=== PATIENT | male | born 1970 | race Caucasian/White ===

== ENCOUNTER → 2017-03-03 | Outpatient (REF) | payer BC ==
[~2017-03-03] MED LIST: /AMLO25TA PO; BP MED; CIPR500T3 PO; FLAG500T PO; MULTCHW13 PO; SIME40TA PO; TYLE325T5 PO; VITAD1000T PO
[2017-03-03 16:41] LABS: BASO % 0.3 % (0.0-1.0); EOS # 0.1 K/mm3 (0.0-0.50); EOS % 2.2 % (0.0-3.0); LARGE UNSTAINED CELL # 0.2 K/mm3 (0.0-0.4); LARGE UNSTAINED CELL % 2.4 % (0.0-4.0); LYMPH # 1.9 K/mm3 (1.5-4.5); LYMPH % 28.5 % (24.0-44.0); MEAN CORPUSCULAR HEMOGLOBIN 29.7 pg (27.0-33.0); MEAN CORPUSCULAR HGB CONC 32.9 g/dl (32.0-36.5); MEAN CORPUSCULAR VOLUME 90.5 fl (80.0-96.0); MONO # 0.4 K/mm3 (0.0-0.8); MONO % 6.5 % (0.0-5.0); NEUTROPHILS # 3.9 K/mm3 (1.8-7.7); PLATELET COUNT, AUTOMATED 209 k/mm3 (150-450); RED CELL DISTRIBUTION WIDTH 13.5 % (11.5-14.5); WHITE BLOOD COUNT 6.5 K/mm3 (4.0-10.0)
[2017-03-03 17:38] LABS: VITAMIN B12 LEVEL 307 PG/ML (247-911)
[2017-03-03 17:46] LABS: ANION GAP 6 MEQ/L (8-16); BLOOD UREA NITROGEN 11 MG/DL (7-18); CALCIUM LEVEL 8.8 MG/DL (8.5-10.1); CARBON DIOXIDE LEVEL 30 MEQ/L (21-32); CHLORIDE LEVEL 111 MEQ/L (98-107); CREATININE FOR GFR 1.08 MG/DL (0.70-1.30); FERRITIN 28 NG/ML (26-388); FREE T4 0.84 NG/DL (0.76-1.46); GLOMERULAR FILTRATION RATE > 60.0 (>60); GLUCOSE, FASTING 96 MG/DL (70-105); SODIUM LEVEL 147 MEQ/L (136-145)
== END ==
LOC: M SFHCLERA 09:59
PROVIDERS: ATTEND Family Medicine
DX: Z98.890 Other specified postprocedural states (principal); F34.1 Dysthymic disorder; I10 Essential (primary) hypertension

== ENCOUNTER → 2017-03-03 | Outpatient (REF) | payer BC ==
[2017-03-03 16:37] LABS: BASO % 0.3 % (0.0-1.0); EOS # 0.2 K/mm3 (0.0-0.50); EOS % 2.3 % (0.0-3.0); LARGE UNSTAINED CELL # 0.2 K/mm3 (0.0-0.4); LARGE UNSTAINED CELL % 2.8 % (0.0-4.0); LYMPH # 1.9 K/mm3 (1.5-4.5); LYMPH % 29.1 % (24.0-44.0); MEAN CORPUSCULAR HEMOGLOBIN 29.6 pg (27.0-33.0); MEAN CORPUSCULAR HGB CONC 32.7 g/dl (32.0-36.5); MEAN CORPUSCULAR VOLUME 90.6 fl (80.0-96.0); MONO # 0.5 K/mm3 (0.0-0.8); MONO % 7.3 % (0.0-5.0); NEUTROPHILS # 3.8 K/mm3 (1.8-7.7); NEUTROPHILS % 58.1 % (36.0-66.0); PLATELET COUNT, AUTOMATED 210 k/mm3 (150-450); RED CELL DISTRIBUTION WIDTH 13.5 % (11.5-14.5); WHITE BLOOD COUNT 6.4 K/mm3 (4.0-10.0)
[2017-03-03 17:11] LABS: ALBUMIN 3.5 GM/DL (3.2-5.2); ALBUMIN/GLOBULIN RATIO 1.25 (1.00-1.93); ALKALINE PHOSPHATASE 36 U/L (45-117); ALT/SGPT 21 U/L (12-78); ANION GAP 5 MEQ/L (8-16); AST/SGOT 13 U/L (15-37); BILIRUBIN,DIRECT 0.1 MG/DL (0.0-0.2); BILIRUBIN,TOTAL 0.5 MG/DL (0.2-1.0); BLOOD UREA NITROGEN 12 MG/DL (7-18); CALCIUM LEVEL 8.7 MG/DL (8.5-10.1); CARBON DIOXIDE LEVEL 30 MEQ/L (21-32); CHLORIDE LEVEL 111 MEQ/L (98-107); CREATININE FOR GFR 1.08 MG/DL (0.70-1.30); GLOMERULAR FILTRATION RATE > 60.0 (>60); GLUCOSE, FASTING 94 MG/DL (70-105); POTASSIUM SERUM 4.1 MEQ/L (3.5-5.1); SODIUM LEVEL 146 MEQ/L (136-145); TOTAL PROTEIN 6.3 GM/DL (6.4-8.2)
== END ==
LOC: M LAB REF 16:28
PROVIDERS: ATTEND Physician Assistant
DX: Z51.81 Encounter for therapeutic drug level monitoring (principal); Z79.899 Other long term (current) drug therapy

== ENCOUNTER → 2017-03-15 | Outpatient (REF) | payer BC | LOC: M SFHCLERA 11:33 | PROVIDERS: ATTEND Family Medicine | DX: Z11.4 Encounter for screening for human immunodeficiency virus [HIV] (principal) ==

== ENCOUNTER → 2017-05-11 | Outpatient (CLI) | payer BC ==
[2017-05-11 12:58] LABS: BASO % 0.6 % (0.0-1.0); EOS # 0.2 K/mm3 (0.0-0.50); EOS % 2.3 % (0.0-3.0); LYMPH % 28.2 % (24.0-44.0); MEAN CORPUSCULAR HEMOGLOBIN 31.2 pg (27.0-33.0); MEAN CORPUSCULAR HGB CONC 34.7 g/dl (32.0-36.5); MONO # 0.4 K/mm3 (0.0-0.8); MONO % 6.3 % (0.0-5.0); NEUTROPHILS % 60.3 % (36.0-66.0); RED CELL DISTRIBUTION WIDTH 13.2 % (11.5-14.5); WHITE BLOOD COUNT 6.6 K/mm3 (4.0-10.0)
[2017-05-11 13:06] LABS: ALBUMIN 3.5 GM/DL (3.2-5.2); ALBUMIN/GLOBULIN RATIO 1.09 (1.00-1.93); ALKALINE PHOSPHATASE 33 U/L (45-117); ALT/SGPT 22 U/L (12-78); ANION GAP 5 MEQ/L (8-16); AST/SGOT 11 U/L (15-37); BILIRUBIN,DIRECT < 0.1 MG/DL (0.0-0.2); BILIRUBIN,TOTAL 0.5 MG/DL (0.2-1.0); BLOOD UREA NITROGEN 11 MG/DL (7-18); CALCIUM LEVEL 8.6 MG/DL (8.5-10.1); CARBON DIOXIDE LEVEL 30 MEQ/L (21-32); CHLORIDE LEVEL 108 MEQ/L (98-107); CREATININE FOR GFR 1.09 MG/DL (0.70-1.30); GLOMERULAR FILTRATION RATE > 60.0 (>60); GLUCOSE, FASTING 88 MG/DL (70-105); POTASSIUM SERUM 4.3 MEQ/L (3.5-5.1); SODIUM LEVEL 143 MEQ/L (136-145); TOTAL PROTEIN 6.7 GM/DL (6.4-8.2)
== END ==
LOC: M WUC 09:44
PROVIDERS: ATTEND Physician Assistant
DX: Z79.899 Other long term (current) drug therapy (principal)

== ENCOUNTER → 2017-06-27 | Outpatient (REF) | payer BC ==
[2017-06-27 19:17] LABS: ALBUMIN 3.5 GM/DL (3.2-5.2); ALBUMIN/GLOBULIN RATIO 1.03 (1.00-1.93); ALKALINE PHOSPHATASE 43 U/L (45-117); ALT/SGPT 25 U/L (12-78); ANION GAP 5 MEQ/L (8-16); AST/SGOT 16 U/L (15-37); BILIRUBIN,TOTAL 0.4 MG/DL (0.2-1.0); BLOOD UREA NITROGEN 12 MG/DL (7-18); CALCIUM LEVEL 8.9 MG/DL (8.5-10.1); CARBON DIOXIDE LEVEL 31 MEQ/L (21-32); CHLORIDE LEVEL 106 MEQ/L (98-107); CREATININE FOR GFR 1.14 MG/DL (0.70-1.30); FREE T4 0.85 NG/DL (0.76-1.46); GLOMERULAR FILTRATION RATE > 60.0 (>60); GLUCOSE, FASTING 67 MG/DL (70-105); PERCENT SATURATION 28.3 % (19.7-50.0); POTASSIUM SERUM 4.1 MEQ/L (3.5-5.1); SODIUM LEVEL 142 MEQ/L (136-145); TOTAL IRON BINDING CAPACITY 332 UG/DL (250-450); TOTAL PROTEIN 6.9 GM/DL (6.4-8.2)
== END ==
LOC: M SFHCLERA 11:45
PROVIDERS: ATTEND Family Medicine
DX: R25.2 Cramp and spasm (principal)

== ENCOUNTER → 2018-01-25 | Outpatient (CLI) | payer BC ==
[2018-01-25 11:23] LABS: BASO # 0.1 10^3/uL (0.0-0.2); BASO % 0.7 % (0.0-1.0); EOS # 0.2 10^3/uL (0.0-0.50); EOS % 2.9 % (0.0-3.0); HEMATOCRIT 45.5 % (42.0-52.0); HEMOGLOBIN 15.4 g/dl (14.0-18.0); IMMATURE GRANULOCYTE % 0.3 % (0-3.0); LYMPH # 2.1 10^3/uL (1.5-4.5); LYMPH % 30.3 % (24.0-44.0); MEAN CORPUSCULAR HGB CONC 33.8 g/dl (32.0-36.5); MEAN CORPUSCULAR VOLUME 85.7 fl (80.0-96.0); MONO # 0.6 10^3/uL (0.0-0.8); MONO % 9.3 % (0.0-5.0); NEUTROPHILS # 3.9 10^3/uL (1.8-7.7); NEUTROPHILS % 56.5 % (36.0-66.0); PLATELET COUNT, AUTOMATED 232 10^3/uL (150-450); RED BLOOD COUNT 5.31 10^6/uL (4.30-6.10); RED CELL DISTRIBUTION WIDTH 13.3 % (11.5-14.5); WHITE BLOOD COUNT 6.9 10^3/uL (4.0-10.0)
[2018-01-25 11:56] LABS: ALBUMIN 3.4 GM/DL (3.2-5.2); ALBUMIN/GLOBULIN RATIO 1.13 (1.00-1.93); ALKALINE PHOSPHATASE 45 U/L (45-117); ALT/SGPT 21 U/L (12-78); ANION GAP 7 MEQ/L (8-16); AST/SGOT 15 U/L (7-37); BILIRUBIN,DIRECT 0.1 MG/DL (0.0-0.2); BILIRUBIN,TOTAL 0.5 MG/DL (0.2-1.0); BLOOD UREA NITROGEN 9 MG/DL (7-18); CALCIUM LEVEL 8.5 MG/DL (8.5-10.1); CARBON DIOXIDE LEVEL 29 MEQ/L (21-32); CHLORIDE LEVEL 109 MEQ/L (98-107); GLOMERULAR FILTRATION RATE > 60.0 (>60); GLUCOSE, FASTING 86 MG/DL (70-100); POTASSIUM SERUM 4.2 MEQ/L (3.5-5.1); SODIUM LEVEL 145 MEQ/L (136-145); TOTAL PROTEIN 6.4 GM/DL (6.4-8.2)
== END ==
LOC: M WUC 10:05
DX: Z79.899 Other long term (current) drug therapy (principal)
CPT/HCPCS: 80076

== ENCOUNTER → 2018-04-19 | Outpatient (REF) | payer BC ==
[2018-04-20 11:01] LABS: ALBUMIN 3.7 GM/DL (3.2-5.2); ALBUMIN/GLOBULIN RATIO 1.23 (1.00-1.93); ALKALINE PHOSPHATASE 49 U/L (45-117); ALT/SGPT 21 U/L (12-78); ANION GAP 4 MEQ/L (8-16); AST/SGOT 14 U/L (7-37); BILIRUBIN,DIRECT 0.1 MG/DL (0.0-0.2); BILIRUBIN,TOTAL 0.4 MG/DL (0.2-1.0); BLOOD UREA NITROGEN 10 MG/DL (7-18); CALCIUM LEVEL 8.7 MG/DL (8.5-10.1); CARBON DIOXIDE LEVEL 29 MEQ/L (21-32); CHLORIDE LEVEL 109 MEQ/L (98-107); CREATININE FOR GFR 0.98 MG/DL (0.70-1.30); GLOMERULAR FILTRATION RATE > 60.0 (>60); GLUCOSE, FASTING 81 MG/DL (70-100); POTASSIUM SERUM 4.8 MEQ/L (3.5-5.1); SODIUM LEVEL 142 MEQ/L (136-145); TOTAL PROTEIN 6.7 GM/DL (6.4-8.2)
[2018-04-20 13:04] LABS: HEMATOCRIT 46.3 % (42.0-52.0); HEMOGLOBIN 15.3 g/dl (13.5-17.5); MEAN CORPUSCULAR HEMOGLOBIN 29.8 pg (27.0-33.0); MEAN CORPUSCULAR VOLUME 90.3 fl (80.0-96.0); PLATELET COUNT, AUTOMATED 224 10^3/uL (150-450); RED BLOOD COUNT 5.13 10^6/uL (4.30-6.10); RED CELL DISTRIBUTION WIDTH 13.6 % (11.5-14.5)
== END ==
LOC: M LABSMT 10:04
DX: Z79.899 Other long term (current) drug therapy (principal)
CPT/HCPCS: 80076

== ENCOUNTER → 2018-04-20 | Outpatient (CLI) | payer BC | LOC: M WUC 11:22 | DX: M17.11 Unilateral primary osteoarthritis, right knee (principal) | CPT/HCPCS: 73564 ==

== ENCOUNTER → 2018-12-01 | Outpatient (REF) | payer OTHER ==
[2018-12-01 16:34] LABS: ALBUMIN 3.6 GM/DL (3.2-5.2); BILIRUBIN,DIRECT 0.1 MG/DL (0.0-0.2); BILIRUBIN,TOTAL 0.5 MG/DL (0.2-1.0); TOTAL PROTEIN 6.6 GM/DL (6.4-8.2)
== END ==
LOC: M SFHCLERA 11:18
PROVIDERS: ATTEND Family Medicine
DX: R76.11 Nonspecific reaction to tuberculin skin test without active tuberculosis (principal)

== ENCOUNTER → 2018-12-01 | Outpatient (CLI) | payer OTHER ==
--- NOTE | 2018-12-01 13:58 | REP ---
Chest x-ray: Two views. History: Latent tuberculosis. . Comparison study: September 22, 2017 . Findings: The lungs are well inflated and free of infiltrate. The pleural angles are sharp. The heart size is normal. Pulmonary vasculature is not increased. No significant bony abnormality is seen. Impression: Negative chest x-ray. Electronically Signed by Kelechi Livingston MD 12/01/2018 01:49 P
== END ==
LOC: M LRY 11:37
PROVIDERS: ATTEND Family Medicine
DX: R76.11 Nonspecific reaction to tuberculin skin test without active tuberculosis (principal)

== ENCOUNTER → 2019-01-09 | Outpatient (REF) | payer OTHER ==
[2019-01-09 11:35] LABS: BASO % 0.4 % (0.0-1.0); EOS # 0.1 10^3/uL (0.0-0.50); EOS % 1.1 % (0.0-3.0); HEMATOCRIT 46.1 % (42.0-52.0); HEMOGLOBIN 15.2 g/dl (13.5-17.5); LYMPH % 18.2 % (24.0-44.0); MEAN CORPUSCULAR VOLUME 90.9 fl (80.0-96.0); NEUTROPHILS # 7.7 10^3/uL (1.8-7.7); NEUTROPHILS % 70.9 % (36.0-66.0); PLATELET COUNT, AUTOMATED 268 10^3/uL (150-450); RED BLOOD COUNT 5.07 10^6/uL (4.30-6.10); WHITE BLOOD COUNT 10.9 10^3/uL (4.0-10.0)
[2019-01-09 11:41] LABS: ALBUMIN 3.7 GM/DL (3.2-5.2); BILIRUBIN,DIRECT 0.2 MG/DL (0.0-0.2); BILIRUBIN,TOTAL 0.7 MG/DL (0.2-1.0); TOTAL PROTEIN 6.8 GM/DL (6.4-8.2)
== END ==
LOC: M SFHCLERA 08:22
PROVIDERS: ATTEND Family Medicine
DX: R76.11 Nonspecific reaction to tuberculin skin test without active tuberculosis (principal)

== ENCOUNTER → 2019-02-06 | Outpatient (CLI) | payer OTHER ==
[2019-02-06 20:10] LABS: BASO % 0.4 % (0.0-1.0); EOS # 0.2 10^3/uL (0.0-0.50); HEMATOCRIT 45.2 % (42.0-52.0); HEMOGLOBIN 14.8 g/dl (13.5-17.5); LYMPH # 2.4 10^3/uL (1.5-4.5); LYMPH % 26.1 % (24.0-44.0); MEAN CORPUSCULAR HGB CONC 32.7 g/dl (32.0-36.5); MEAN CORPUSCULAR VOLUME 91.5 fl (80.0-96.0); MONO # 0.8 10^3/uL (0.0-0.8); MONO % 8.7 % (0.0-5.0); NEUTROPHILS # 5.7 10^3/uL (1.8-7.7); NEUTROPHILS % 62.5 % (36.0-66.0); PLATELET COUNT, AUTOMATED 222 10^3/uL (150-450); RED BLOOD COUNT 4.94 10^6/uL (4.30-6.10); WHITE BLOOD COUNT 9.1 10^3/uL (4.0-10.0)
[2019-02-06 20:12] LABS: ALBUMIN 3.5 GM/DL (3.2-5.2); ALT/SGPT 25 U/L (12-78); BILIRUBIN,DIRECT < 0.1 MG/DL (0.0-0.2); BILIRUBIN,TOTAL 0.3 MG/DL (0.2-1.0); TOTAL PROTEIN 6.5 GM/DL (6.4-8.2)
== END ==
LOC: M WUC 16:17
PROVIDERS: ATTEND Family Medicine
DX: R76.11 Nonspecific reaction to tuberculin skin test without active tuberculosis (principal)

== ENCOUNTER → 2019-03-10 | Outpatient (CLI) | payer OTHER ==
[~2019-03-10] MED LIST changes: -/AMLO25TA PO; +NORV2TAB PO
[2019-03-10 19:07] LABS: BASO % 0.5 % (0.0-1.0); EOS # 0.2 10^3/uL (0.0-0.50); HEMATOCRIT 47.9 % (42.0-52.0); LYMPH # 2.1 10^3/uL (1.5-4.5); LYMPH % 27.9 % (24.0-44.0); MEAN CORPUSCULAR HEMOGLOBIN 30.8 pg (27.0-33.0); MEAN CORPUSCULAR HGB CONC 33.4 g/dl (32.0-36.5); MEAN CORPUSCULAR VOLUME 92.1 fl (80.0-96.0); MONO # 0.5 10^3/uL (0.0-0.8); MONO % 7.2 % (0.0-5.0); NEUTROPHILS # 4.7 10^3/uL (1.8-7.7); PLATELET COUNT, AUTOMATED 263 10^3/uL (150-450); WHITE BLOOD COUNT 7.5 10^3/uL (4.0-10.0)
[2019-03-10 19:16] LABS: BILIRUBIN,DIRECT 0.1 MG/DL (0.0-0.2); BILIRUBIN,TOTAL 0.4 MG/DL (0.2-1.0); TOTAL PROTEIN 6.9 GM/DL (6.4-8.2)
== END ==
LOC: M WUC 10:35
PROVIDERS: ATTEND Family Medicine
DX: R76.11 Nonspecific reaction to tuberculin skin test without active tuberculosis (principal)

== ENCOUNTER → 2019-06-25 | Outpatient (CLI) | payer OTHER ==
[2019-06-25 20:19] LABS: BASO % 0.5 % (0.0-1.0); EOS # 0.2 10^3/uL (0.0-0.50); EOS % 2.5 % (0.0-3.0); HEMATOCRIT 42.1 % (42.0-52.0); HEMOGLOBIN 14.2 g/dl (13.5-17.5); LYMPH # 2.4 10^3/uL (1.5-4.5); LYMPH % 28.6 % (24.0-44.0); MEAN CORPUSCULAR HGB CONC 33.7 g/dl (32.0-36.5); MEAN CORPUSCULAR VOLUME 88.8 fl (80.0-96.0); MONO # 0.9 10^3/uL (0.0-0.8); MONO % 10.6 % (0.0-5.0); NEUTROPHILS # 4.9 10^3/uL (1.8-7.7); NEUTROPHILS % 57.4 % (36.0-66.0); PLATELET COUNT, AUTOMATED 266 10^3/uL (150-450); RED BLOOD COUNT 4.74 10^6/uL (4.30-6.10); WHITE BLOOD COUNT 8.5 10^3/uL (4.0-10.0)
[2019-06-25 20:45] LABS: ALBUMIN 3.5 GM/DL (3.2-5.2); ALT/SGPT 35 U/L (12-78); BILIRUBIN,DIRECT < 0.1 MG/DL (0.0-0.2); BILIRUBIN,TOTAL 0.2 MG/DL (0.2-1.0); TOTAL PROTEIN 6.5 GM/DL (6.4-8.2)
== END ==
LOC: M WUC 17:06
PROVIDERS: ATTEND Family Medicine
DX: R76.11 Nonspecific reaction to tuberculin skin test without active tuberculosis (principal)

== ENCOUNTER → 2019-10-23 | Outpatient (REF) | payer OTHER ==
[2019-10-23 11:42] LABS: BASO % 0.6 % (0.0-1.0); EOS # 0.1 10^3/uL (0.0-0.5); EOS % 2.2 % (0.0-3.0); HEMATOCRIT 46.8 % (42.0-52.0); HEMOGLOBIN 15.3 g/dl (13.5-17.5); LYMPH # 1.8 10^3/uL (1.5-5.0); LYMPH % 28.8 % (24.0-44.0); MEAN CORPUSCULAR HEMOGLOBIN 29.2 pg (27.0-33.0); MEAN CORPUSCULAR HGB CONC 32.7 g/dl (32.0-36.5); MEAN CORPUSCULAR VOLUME 89.3 fl (80.0-96.0); MONO # 0.7 10^3/uL (0.0-0.8); MONO % 10.2 % (0.0-5.0); NEUTROPHILS # 3.7 10^3/uL (1.5-8.5); NEUTROPHILS % 57.3 % (36.0-66.0); PLATELET COUNT, AUTOMATED 246 10^3/uL (150-450); RED BLOOD COUNT 5.24 10^6/uL (4.30-6.10); WHITE BLOOD COUNT 6.4 10^3/uL (4.0-10.0)
[2019-10-23 11:56] LABS: ALBUMIN 3.4 GM/DL (3.2-5.2); ALT/SGPT 24 U/L (12-78); BILIRUBIN,TOTAL 0.5 MG/DL (0.2-1.0); BLOOD UREA NITROGEN 9 MG/DL (7-18); CALCIUM LEVEL 8.5 MG/DL (8.5-10.1); CARBON DIOXIDE LEVEL 27 MEQ/L (21-32); CHLORIDE LEVEL 109 MEQ/L (98-107); CREATININE FOR GFR 1.12 MG/DL (0.70-1.30); GLOMERULAR FILTRATION RATE > 60.0 (>60); GLUCOSE, FASTING 97 MG/DL (70-100); POTASSIUM SERUM 3.7 MEQ/L (3.5-5.1); SODIUM LEVEL 143 MEQ/L (136-145); TOTAL PROTEIN 6.5 GM/DL (6.4-8.2)
== END ==
LOC: M SFHCLERA 08:21
PROVIDERS: ATTEND Family Medicine
DX: I10 Essential (primary) hypertension (principal); Z22.7 Latent tuberculosis

== ENCOUNTER → 2020-08-20 | Outpatient (CLI) | payer OTHER ==
[2020-08-20 11:06] LABS: CHOLESTEROL RISK RATIO 4.25 (<5)
== END ==
LOC: M WUC 08:29
PROVIDERS: ATTEND Family Medicine
DX: I10 Essential (primary) hypertension (principal); Z12.5 Encounter for screening for malignant neoplasm of prostate

== ENCOUNTER → 2020-08-20 | Outpatient (CLI) | payer OTHER ==
[2020-08-20 11:07] LABS: BASO # 0.1 10^3/uL (0.0-0.2); BASO % 0.5 % (0.0-1.0); EOS # 0.2 10^3/uL (0.0-0.5); EOS % 1.4 % (0.0-3.0); HEMATOCRIT 46.8 % (42.0-52.0); HEMOGLOBIN 15.4 g/dl (13.5-17.5); LYMPH # 2.7 10^3/uL (1.5-5.0); LYMPH % 22.8 % (24.0-44.0); MEAN CORPUSCULAR HEMOGLOBIN 29.5 pg (27.0-33.0); MEAN CORPUSCULAR HGB CONC 32.9 g/dl (32.0-36.5); MEAN CORPUSCULAR VOLUME 89.7 fl (80.0-96.0); MONO # 0.9 10^3/uL (0.0-0.8); MONO % 7.8 % (0.0-5.0); NEUTROPHILS % 67.1 % (36.0-66.0); PLATELET COUNT, AUTOMATED 236 10^3/uL (150-450); RED BLOOD COUNT 5.22 10^6/uL (4.30-6.10); WHITE BLOOD COUNT 11.9 10^3/uL (4.0-10.0)
[2020-08-20 11:27] LABS: ALBUMIN 3.6 GM/DL (3.2-5.2); ALT/SGPT 26 U/L (12-78); BILIRUBIN,TOTAL 0.5 MG/DL (0.2-1.0); BLOOD UREA NITROGEN 17 MG/DL (7-18); CALCIUM LEVEL 9.1 MG/DL (8.5-10.1); CARBON DIOXIDE LEVEL 29 MEQ/L (21-32); CHLORIDE LEVEL 107 MEQ/L (98-107); CREATININE FOR GFR 1.28 MG/DL (0.70-1.30); GLOMERULAR FILTRATION RATE > 60.0 (>60); GLUCOSE, FASTING 84 MG/DL (70-100); SODIUM LEVEL 140 MEQ/L (136-145)
[2020-08-20 12:55] LABS: HEPATITIS B SURFACE ANTIGEN NEGATIVE (NEGATIVE)
[2020-08-20 13:22] LABS: HEPATITIS C VIRUS ABY INDEX 0.1 INDEX (<0.8)
[2020-08-20 13:23] LABS: HEPATITIS B CORE ANTIBODY IGM NEGATIVE (NEGATIVE); HIV 1&2 SCREEN CENTAUR NEGATIVE (NEGATIVE)
[2020-08-20 13:24] LABS: HEPATITIS A ANTIBODY IGM NEGATIVE (NEGATIVE)
== END ==
LOC: M WUC 08:30
PROVIDERS: ATTEND Physician Assistant
DX: L40.0 Psoriasis vulgaris (principal)

== ENCOUNTER → 2020-09-09 | Outpatient (REF) | payer OTHER | LOC: M SFHCLERA 13:37 | PROVIDERS: ATTEND Nurse Practitioner Family | DX: M25.473 Effusion, unspecified ankle (principal) ==

== ENCOUNTER → 2020-09-09 | Outpatient (CLI) | payer OTHER ==
[2020-09-09 20:26] LABS: ALBUMIN 3.3 GM/DL (3.2-5.2); ALT/SGPT 16 U/L (12-78); BILIRUBIN,TOTAL 0.2 MG/DL (0.2-1.0); BLOOD UREA NITROGEN 13 MG/DL (7-18); CALCIUM LEVEL 8.5 MG/DL (8.5-10.1); CARBON DIOXIDE LEVEL 30 MEQ/L (21-32); CHLORIDE LEVEL 105 MEQ/L (98-107); CREATININE FOR GFR 1.31 MG/DL (0.70-1.30); GLOMERULAR FILTRATION RATE > 60.0 (>60); GLUCOSE, FASTING 94 MG/DL (70-100); NT-PRO BNP 56 PG/ML (<125); POTASSIUM SERUM 3.9 MEQ/L (3.5-5.1); SODIUM LEVEL 142 MEQ/L (136-145); TOTAL PROTEIN 7.2 GM/DL (6.4-8.2); URIC ACID 9.6 MG/DL (3.5-7.2)
== END ==
LOC: M WUC 16:51
PROVIDERS: ATTEND Nurse Practitioner Family
DX: M25.473 Effusion, unspecified ankle (principal)

== ENCOUNTER → 2020-09-26 | Outpatient (CLI) | payer OTHER ==
--- NOTE | 2020-09-26 14:43 | REP ---
INDICATION: PAIN. COMPARISON: 12/11/2012 TECHNIQUE: Four views FINDINGS: There has been a prior of 1st metatarsal osteotomy and bunionectomy. Lag screw is seen in the bone as before. There is some degenerative changes at the 1st MTP joint. The other MTP joints are intact IP joints with minimal degenerative change. I do not see fracture of 2nd through 5th metatarsals. There are small plantar and Achilles insertional spurs evident on the lateral view similar to previous study. Subtalar joints intact. Talonavicular and calcaneocuboid joints are normal. Some mild soft tissue swelling dorsal aspect of the distal forefoot. I do not see definite erosive changes there would be clearly suggestive of gout. There are few tiny calcific densities about the proximal head of the 5th metatarsal in a pattern that more resembles tendinous calcification than avulsion. IMPRESSION: S/p distal osteotomy and bunionectomy 1st metatarsal, remote and as seen on the 2012 study. Some degenerative changes are seen at the 1st MTP joint. Small heel spurs as before. Mild soft tissue swelling dorsally. No fracture or any definitive erosions that would be suggestive of gout. There are a few calcifications near the head of the 5th metatarsal in a distribution and pattern suggesting tendinous calcification. <Electronically signed by Guillaume Hathaway > 09/26/20 [id number]
== END ==
LOC: M WUC 14:09
PROVIDERS: ATTEND Nurse Practitioner Family
DX: M79.672 Pain in left foot (principal); M77.32 Calcaneal spur, left foot; M19.072 Primary osteoarthritis, left ankle and foot; M79.89 Other specified soft tissue disorders

== ENCOUNTER → 2020-11-25 | Outpatient (CLI) | payer OTHER ==
--- NOTE | 2020-11-25 10:52 | REP ---
INDICATION: SWELLING. COMPARISON: None. TECHNIQUE: Four views FINDINGS: Four views of the right hand demonstrate soft tissue swelling about the proximal phalanx of the index finger. Overall mineralization pattern is normal. Joint spaces are preserved and alignment is normal.. No fracture or subluxation is seen. No opaque foreign body noted. IMPRESSION: Soft tissue swelling about the index finger proximal phalanx. No acute bony abnormality.. <Electronically signed by Raleigh Livingston > 11/25/20 0926
[2020-11-25 13:14] LABS: BASO % 0.5 % (0.0-1.0); EOS # 0.2 10^3/uL (0.0-0.5); EOS % 2.1 % (0.0-3.0); HEMATOCRIT 45.4 % (42.0-52.0); HEMOGLOBIN 14.4 g/dl (13.5-17.5); LYMPH # 1.9 10^3/uL (1.5-5.0); LYMPH % 22.1 % (24.0-44.0); MEAN CORPUSCULAR HEMOGLOBIN 28.1 pg (27.0-33.0); MEAN CORPUSCULAR HGB CONC 31.7 g/dl (32.0-36.5); MEAN CORPUSCULAR VOLUME 88.7 fl (80.0-96.0); MONO # 0.9 10^3/uL (0.0-0.8); MONO % 10.3 % (0.0-5.0); NEUTROPHILS # 5.6 10^3/uL (1.5-8.5); NEUTROPHILS % 64.5 % (36.0-66.0); PLATELET COUNT, AUTOMATED 325 10^3/uL (150-450); RED BLOOD COUNT 5.12 10^6/uL (4.30-6.10); WHITE BLOOD COUNT 8.6 10^3/uL (4.0-10.0)
[2020-11-25 13:39] LABS: ALBUMIN 3.5 GM/DL (3.2-5.2); ALT/SGPT 18 U/L (12-78); BILIRUBIN,TOTAL 0.3 MG/DL (0.2-1.0); BLOOD UREA NITROGEN 12 MG/DL (7-18); C REACTIVE PROTEIN QUANTITATIV 0.38 MG/DL (0.00-0.30); CALCIUM LEVEL 9.2 MG/DL (8.5-10.1); CARBON DIOXIDE LEVEL 30 MEQ/L (21-32); CHLORIDE LEVEL 107 MEQ/L (98-107); CREATININE FOR GFR 1.37 MG/DL (0.70-1.30); GLOMERULAR FILTRATION RATE 58.8 (>60); GLUCOSE, FASTING 90 MG/DL (70-100); POTASSIUM SERUM 4.4 MEQ/L (3.5-5.1); RHEUMATOID FACTOR QUANT < 10.0 IU/ML (<15.0); SODIUM LEVEL 140 MEQ/L (136-145); TOTAL PROTEIN 7.1 GM/DL (6.4-8.2); URIC ACID 9.9 MG/DL (3.5-7.2)
[2020-11-25 13:44] LABS: ERYTHROCYTE SEDIMENTATION RATE 20 mm/hr (0-15)
[2020-11-26 15:12] LABS: ANTINUCLEAR ANTIBODIES DIRECT Negative (Negative); Lyme Disease IgG/IgM Antibodie <0.91 ISR (0.00-0.90); Lyme Disease IgM Ab Quantitati <0.80 index (0.00-0.79)
== END ==
LOC: M WUC 10:04
PROVIDERS: ATTEND Nurse Practitioner Family
DX: M79.89 Other specified soft tissue disorders (principal); M25.541 Pain in joints of right hand

== ENCOUNTER → 2020-11-25 | Outpatient (REF) | payer OTHER | LOC: M SFHCLERA 09:22 | PROVIDERS: ATTEND Nurse Practitioner Family | DX: M79.89 Other specified soft tissue disorders (principal); M25.541 Pain in joints of right hand ==

== ENCOUNTER → 2020-12-04 | Outpatient (CLI) | payer OTHER ==
[2020-12-04 19:55] LABS: HEPATITIS A ANTIBODY IGM NEGATIVE (NEGATIVE); HEPATITIS B CORE ANTIBODY IGM NEGATIVE (NEGATIVE); HEPATITIS B SURFACE ANTIGEN NEGATIVE (NEGATIVE); HEPATITIS C VIRUS ABY INDEX < 0.0 INDEX (<0.8); HIV 1&2 SCREEN CENTAUR NEGATIVE (NEGATIVE)
== END ==
LOC: M WUC 15:34
PROVIDERS: ATTEND Family Medicine
DX: Z20.2 Contact with and (suspected) exposure to infections with a predominantly sexual mode of transmission (principal)

== ENCOUNTER → 2021-02-19 | Outpatient (CLI) | payer OTHER ==
--- NOTE | 2021-02-19 11:27 | REP ---
INDICATION: UNDIFFERENTIATED INFLAMMATORY ARTHRITIS. COMPARISON: Right hand 11/25/2020 TECHNIQUE: Four views each wrist FINDINGS: Right wrist: The distal radius and ulna show a tiny cortical lucency the distal tip of the radial styloid, not well depicted previously carpal bones show a few questionable small subcortical lucencies in the distal pole the scaphoid, radial margin of the greater multangular bone and no clear destructive lesion, joint space narrowing, fracture or healing fracture I do not see significant soft tissue swelling about the dorsal aspect of the wrist or hand. Metacarpals show minor degenerative changes at the 1st CMC joint the MCP joints and metacarpal shafts were unremarkable. Left wrist: Likewise a subtle subcortical lucency in the radial styloid tip, distal pole of the scaphoid and at the greater multangular bone on oblique view. There is no visible fracture, healing fracture or cortical disruption.. No joint space narrowing.. Minor degenerative changes with tiny spurs at the 1st CMC joint. No significant soft tissue swelling noted. Metacarpals and MCP joints were grossly intact. IMPRESSION: 1. Some minimal subcortical lucencies as described. These may reflect some degenerative arthritis or small cortical/subcortical cysts without destruction of the overlying cortex evident. There is no demineralization, ulnar deviation or other significant finding. <Electronically signed by Guillaume Hathaway > 02/19/21 [id number]
== END ==
LOC: M WUC 10:55
PROVIDERS: ATTEND Internal Medicine
DX: M06.4 Inflammatory polyarthropathy (principal)

== ENCOUNTER → 2021-02-19 | Outpatient (REF) | payer OTHER ==
[2021-02-19 12:40] LABS: BASO % 0.5 % (0.0-1.0); EOS # 0.2 10^3/uL (0.0-0.5); EOS % 2.7 % (0.0-3.0); HEMATOCRIT 45.9 % (42.0-52.0); HEMOGLOBIN 14.8 g/dl (13.5-17.5); LYMPH # 2.2 10^3/uL (1.5-5.0); LYMPH % 29.1 % (24.0-44.0); MEAN CORPUSCULAR HEMOGLOBIN 28.7 pg (27.0-33.0); MEAN CORPUSCULAR HGB CONC 32.2 g/dl (32.0-36.5); MONO # 0.8 10^3/uL (0.0-0.8); MONO % 10.5 % (2.0-8.0); NEUTROPHILS # 4.3 10^3/uL (1.5-8.5); NEUTROPHILS % 56.8 % (36.0-66.0); PLATELET COUNT, AUTOMATED 264 10^3/uL (150-450); RED BLOOD COUNT 5.16 10^6/uL (4.30-6.10); WHITE BLOOD COUNT 7.6 10^3/uL (4.0-10.0)
[2021-02-19 13:11] LABS: ERYTHROCYTE SEDIMENTATION RATE 5 mm/hr (0-15)
[2021-02-19 14:33] LABS: ALBUMIN 3.4 GM/DL (3.2-5.2); ALT/SGPT 24 U/L (12-78); BILIRUBIN,DIRECT < 0.1 MG/DL (0.0-0.2); BILIRUBIN,TOTAL 0.2 MG/DL (0.2-1.0); BLOOD UREA NITROGEN 14 MG/DL (7-18); CALCIUM LEVEL 8.5 MG/DL (8.5-10.1); CARBON DIOXIDE LEVEL 25 MEQ/L (21-32); CHLORIDE LEVEL 107 MEQ/L (98-107); CREATININE FOR GFR 1.18 MG/DL (0.70-1.30); GLOMERULAR FILTRATION RATE > 60.0 (>60); GLUCOSE, FASTING 83 MG/DL (70-100); POTASSIUM SERUM 3.6 MEQ/L (3.5-5.1); SODIUM LEVEL 141 MEQ/L (136-145); TOTAL PROTEIN 6.6 GM/DL (6.4-8.2); URIC ACID 10.7 MG/DL (3.5-7.2)
== END ==
LOC: M SFHCRHEU 10:19
PROVIDERS: ATTEND Internal Medicine
DX: R79.89 Other specified abnormal findings of blood chemistry (principal); M06.4 Inflammatory polyarthropathy; M1A.9XX0 Chronic gout, unspecified, without tophus (tophi)

== ENCOUNTER → 2021-03-02 | Outpatient (REF) | payer OTHER | LOC: M SFHCLERA 15:59 | PROVIDERS: ATTEND Family Medicine | DX: K21.00 Gastro-esophageal reflux disease with esophagitis, without bleeding (principal) ==

== ENCOUNTER → 2021-03-24 | Outpatient (REF) | payer OTHER ==
[2021-03-24 20:32] LABS: BLOOD UREA NITROGEN 13 MG/DL (7-18); CALCIUM LEVEL 8.7 MG/DL (8.5-10.1); CARBON DIOXIDE LEVEL 30 MEQ/L (21-32); CHLORIDE LEVEL 109 MEQ/L (98-107); CREATININE FOR GFR 1.22 MG/DL (0.70-1.30); GLOMERULAR FILTRATION RATE > 60.0 (>60); GLUCOSE, FASTING 143 MG/DL (70-100); POTASSIUM SERUM 4.5 MEQ/L (3.5-5.1); SODIUM LEVEL 142 MEQ/L (136-145); URIC ACID 8.1 MG/DL (3.5-7.2)
== END ==
LOC: M LAB 20:07
PROVIDERS: ATTEND Internal Medicine
DX: M1A.9XX0 Chronic gout, unspecified, without tophus (tophi) (principal)

== ENCOUNTER → 2021-04-07 | Outpatient (CLI) | payer OTHER ==
[2021-04-07 20:36] LABS: BLOOD UREA NITROGEN 12 MG/DL (7-18); CALCIUM LEVEL 7.9 MG/DL (8.5-10.1); CARBON DIOXIDE LEVEL 22 MEQ/L (21-32); CHLORIDE LEVEL 111 MEQ/L (98-107); CREATININE FOR GFR 1.15 MG/DL (0.70-1.30); GLOMERULAR FILTRATION RATE > 60.0 (>60); GLUCOSE, FASTING 98 MG/DL (70-100); POTASSIUM SERUM 3.7 MEQ/L (3.5-5.1); SODIUM LEVEL 143 MEQ/L (136-145); URIC ACID 8.3 MG/DL (3.5-7.2)
== END ==
LOC: M WUC 15:39
PROVIDERS: ATTEND Internal Medicine
DX: M1A.9XX0 Chronic gout, unspecified, without tophus (tophi) (principal)

== ENCOUNTER → 2021-04-22 | Outpatient (CLI) | payer OTHER ==
[2021-04-22 19:50] LABS: BLOOD UREA NITROGEN 16 MG/DL (7-18); CALCIUM LEVEL 9.2 MG/DL (8.5-10.1); CARBON DIOXIDE LEVEL 32 MEQ/L (21-32); CHLORIDE LEVEL 106 MEQ/L (98-107); CREATININE FOR GFR 1.25 MG/DL (0.70-1.30); GLOMERULAR FILTRATION RATE > 60.0 (>60); GLUCOSE, FASTING 93 MG/DL (70-100); POTASSIUM SERUM 4.3 MEQ/L (3.5-5.1); SODIUM LEVEL 142 MEQ/L (136-145); URIC ACID 7.9 MG/DL (3.5-7.2)
== END ==
LOC: M WUC 15:40
PROVIDERS: ATTEND Internal Medicine
DX: M1A.9XX0 Chronic gout, unspecified, without tophus (tophi) (principal)

== ENCOUNTER → 2021-05-05 | Outpatient (CLI) | payer OTHER ==
[2021-05-05 13:06] LABS: BLOOD UREA NITROGEN 16 MG/DL (7-18); CALCIUM LEVEL 8.9 MG/DL (8.5-10.1); CARBON DIOXIDE LEVEL 25 MEQ/L (21-32); CHLORIDE LEVEL 111 MEQ/L (98-107); CREATININE FOR GFR 1.19 MG/DL (0.70-1.30); GLOMERULAR FILTRATION RATE > 60.0 (>60); GLUCOSE, FASTING 84 MG/DL (70-100); POTASSIUM SERUM 3.7 MEQ/L (3.5-5.1); SODIUM LEVEL 142 MEQ/L (136-145); URIC ACID 8.2 MG/DL (3.5-7.2)
== END ==
LOC: M WUC 08:47
PROVIDERS: ATTEND Internal Medicine
DX: M1A.9XX0 Chronic gout, unspecified, without tophus (tophi) (principal)

== ENCOUNTER → 2021-05-19 | Outpatient (CLI) | payer OTHER ==
[2021-05-19 20:47] LABS: BLOOD UREA NITROGEN 14 MG/DL (7-18); CALCIUM LEVEL 8.7 MG/DL (8.5-10.1); CARBON DIOXIDE LEVEL 29 MEQ/L (21-32); CHLORIDE LEVEL 109 MEQ/L (98-107); CREATININE FOR GFR 1.26 MG/DL (0.70-1.30); GLOMERULAR FILTRATION RATE > 60.0 (>60); GLUCOSE, FASTING 97 MG/DL (70-100); SODIUM LEVEL 141 MEQ/L (136-145); URIC ACID 7.7 MG/DL (3.5-7.2)
== END ==
LOC: M WUC 15:37
PROVIDERS: ATTEND Internal Medicine
DX: M1A.9XX0 Chronic gout, unspecified, without tophus (tophi) (principal)

== ENCOUNTER → 2021-06-01 | Outpatient (CLI) | payer OTHER ==
[2021-06-01 12:54] LABS: BLOOD UREA NITROGEN 12 MG/DL (7-18); CALCIUM LEVEL 9.1 MG/DL (8.5-10.1); CARBON DIOXIDE LEVEL 25 MEQ/L (21-32); CHLORIDE LEVEL 109 MEQ/L (98-107); CREATININE FOR GFR 1.23 MG/DL (0.70-1.30); GLOMERULAR FILTRATION RATE > 60.0 (>60); GLUCOSE, FASTING 136 MG/DL (70-100); SODIUM LEVEL 142 MEQ/L (136-145); URIC ACID 7.3 MG/DL (3.5-7.2)
== END ==
LOC: M WUC 09:10
PROVIDERS: ATTEND Internal Medicine
DX: M1A.9XX0 Chronic gout, unspecified, without tophus (tophi) (principal)

== ENCOUNTER → 2021-06-16 | Outpatient (REF) | payer OTHER ==
[2021-06-16 17:05] LABS: CALCIUM LEVEL 8.8 MG/DL (8.5-10.1); CREATININE FOR GFR 1.35 MG/DL (0.70-1.30); GLOMERULAR FILTRATION RATE 59.8 (>60); POTASSIUM SERUM 3.6 MEQ/L (3.5-5.1); URIC ACID 6.8 MG/DL (3.5-7.2)
== END ==
LOC: M WUC 15:43
PROVIDERS: ATTEND Internal Medicine
DX: M1A.9XX0 Chronic gout, unspecified, without tophus (tophi) (principal)

== ENCOUNTER → 2021-07-02 | Outpatient (CLI) | payer OTHER ==
[2021-07-02 17:38] LABS: BLOOD UREA NITROGEN 15 MG/DL (7-18); CALCIUM LEVEL 8.7 MG/DL (8.5-10.1); CARBON DIOXIDE LEVEL 29 MEQ/L (21-32); CHLORIDE LEVEL 111 MEQ/L (98-107); CREATININE FOR GFR 1.29 MG/DL (0.70-1.30); GLOMERULAR FILTRATION RATE > 60.0 (>60); GLUCOSE, FASTING 90 MG/DL (70-100); POTASSIUM SERUM 3.9 MEQ/L (3.5-5.1); SODIUM LEVEL 143 MEQ/L (136-145); URIC ACID 6.6 MG/DL (3.5-7.2)
== END ==
LOC: M WUC 15:46
PROVIDERS: ATTEND Internal Medicine
DX: M1A.9XX0 Chronic gout, unspecified, without tophus (tophi) (principal)

== ENCOUNTER → 2021-07-14 | Outpatient (REF) | payer OTHER ==
[2021-07-14 20:58] LABS: BLOOD UREA NITROGEN 9 MG/DL (7-18); CALCIUM LEVEL 8.5 MG/DL (8.5-10.1); CARBON DIOXIDE LEVEL 27 MEQ/L (21-32); CHLORIDE LEVEL 113 MEQ/L (98-107); CREATININE FOR GFR 1.25 MG/DL (0.70-1.30); GLOMERULAR FILTRATION RATE > 60.0 (>60); GLUCOSE, FASTING 74 MG/DL (70-100); POTASSIUM SERUM 4.1 MEQ/L (3.5-5.1); SODIUM LEVEL 145 MEQ/L (136-145); URIC ACID 6.7 MG/DL (3.5-7.2)
== END ==
LOC: M SMT 20:13
PROVIDERS: ATTEND Internal Medicine
DX: M1A.9XX0 Chronic gout, unspecified, without tophus (tophi) (principal)

== ENCOUNTER → 2021-07-28 | Outpatient (CLI) | payer OTHER ==
[2021-07-28 19:47] LABS: BLOOD UREA NITROGEN 12 MG/DL (7-18); CALCIUM LEVEL 8.8 MG/DL (8.5-10.1); CARBON DIOXIDE LEVEL 28 MEQ/L (21-32); CHLORIDE LEVEL 110 MEQ/L (98-107); CREATININE FOR GFR 1.23 MG/DL (0.70-1.30); GLOMERULAR FILTRATION RATE > 60.0 (>60); GLUCOSE, FASTING 76 MG/DL (70-100); POTASSIUM SERUM 3.8 MEQ/L (3.5-5.1); SODIUM LEVEL 142 MEQ/L (136-145); URIC ACID 6.3 MG/DL (3.5-7.2)
== END ==
LOC: M WUC 15:39
PROVIDERS: ATTEND Internal Medicine
DX: M1A.9XX0 Chronic gout, unspecified, without tophus (tophi) (principal)

== ENCOUNTER → 2021-08-11 | Outpatient (CLI) | payer OTHER ==
[2021-08-11 20:21] LABS: BLOOD UREA NITROGEN 15 MG/DL (7-18); CARBON DIOXIDE LEVEL 30 MEQ/L (21-32); CHLORIDE LEVEL 109 MEQ/L (98-107); CREATININE FOR GFR 1.23 MG/DL (0.70-1.30); GLOMERULAR FILTRATION RATE > 60.0 (>60); GLUCOSE, FASTING 57 MG/DL (70-100); POTASSIUM SERUM 4.1 MEQ/L (3.5-5.1); SODIUM LEVEL 143 MEQ/L (136-145); URIC ACID 6.4 MG/DL (3.5-7.2)
== END ==
LOC: M WUC 15:11
PROVIDERS: ATTEND Internal Medicine
DX: M1A.9XX0 Chronic gout, unspecified, without tophus (tophi) (principal)

== ENCOUNTER → 2021-08-25 | Outpatient (CLI) | payer OTHER ==
[2021-08-25 13:22] LABS: BLOOD UREA NITROGEN 13 MG/DL (7-18); CALCIUM LEVEL 9.1 MG/DL (8.5-10.1); CARBON DIOXIDE LEVEL 29 MEQ/L (21-32); CHLORIDE LEVEL 111 MEQ/L (98-107); CREATININE FOR GFR 1.18 MG/DL (0.70-1.30); GLOMERULAR FILTRATION RATE > 60.0 (>60); GLUCOSE, FASTING 94 MG/DL (70-100); SODIUM LEVEL 143 MEQ/L (136-145); URIC ACID 6.9 MG/DL (3.5-7.2)
== END ==
LOC: M WUC 09:18
PROVIDERS: ATTEND Internal Medicine
DX: M1A.9XX0 Chronic gout, unspecified, without tophus (tophi) (principal)

== ENCOUNTER → 2021-08-25 | Outpatient (CLI) | payer OTHER ==
[2021-08-25 14:00] LABS: CHOLESTEROL LEVEL 197 MG/DL (<200); CHOLESTEROL RISK RATIO 4.804 (<5); HDL CHOLESTEROL 41 MG/DL (>40); LDL CHOLESTEROL 117 MG/DL (<100); NON-HDL-C 156 MG/DL; TRIGLYCERIDES LEVEL 193 MG/DL (<150)
[2021-08-25 14:38] LABS: HIV 1&2 SCREEN CENTAUR NEGATIVE (NEGATIVE)
== END ==
LOC: M WUC 09:13
PROVIDERS: ATTEND Student in an Organized Health Care Education/Training Program
DX: I10 Essential (primary) hypertension (principal); Z11.4 Encounter for screening for human immunodeficiency virus [HIV]

== ENCOUNTER → 2021-09-15 | Outpatient (CLI) | payer OTHER ==
[2021-09-15 20:14] LABS: CALCIUM LEVEL 8.9 MG/DL (8.5-10.1); CREATININE FOR GFR 1.5 MG/DL (0.70-1.30); POTASSIUM SERUM 4.2 MEQ/L (3.5-5.1); URIC ACID 7.3 MG/DL (3.5-7.2)
== END ==
LOC: M WUC 15:06
PROVIDERS: ATTEND Internal Medicine
DX: M1A.9XX0 Chronic gout, unspecified, without tophus (tophi) (principal)

== ENCOUNTER → 2021-09-29 | Outpatient (CLI) | payer OTHER ==
[2021-09-29 16:27] LABS: BLOOD UREA NITROGEN 12 MG/DL (7-18); CALCIUM LEVEL 9.1 MG/DL (8.5-10.1); CARBON DIOXIDE LEVEL 31 MEQ/L (21-32); CHLORIDE LEVEL 108 MEQ/L (98-107); CREATININE FOR GFR 1.25 MG/DL (0.70-1.30); GLOMERULAR FILTRATION RATE > 60.0 (>60); GLUCOSE, FASTING 90 MG/DL (70-100); POTASSIUM SERUM 3.4 MEQ/L (3.5-5.1); SODIUM LEVEL 142 MEQ/L (136-145); URIC ACID 6.2 MG/DL (3.5-7.2)
== END ==
LOC: M WUC 13:06
PROVIDERS: ATTEND Internal Medicine
DX: M1A.9XX0 Chronic gout, unspecified, without tophus (tophi) (principal)

== ENCOUNTER → 2021-10-13 | Outpatient (CLI) | payer OTHER ==
[2021-10-13 16:52] LABS: BLOOD UREA NITROGEN 16 MG/DL (7-18); CALCIUM LEVEL 9.3 MG/DL (8.5-10.1); CARBON DIOXIDE LEVEL 29 MEQ/L (21-32); CHLORIDE LEVEL 105 MEQ/L (98-107); CREATININE FOR GFR 1.26 MG/DL (0.70-1.30); GLOMERULAR FILTRATION RATE > 60.0 (>60); GLUCOSE, FASTING 108 MG/DL (70-100); POTASSIUM SERUM 3.6 MEQ/L (3.5-5.1); SODIUM LEVEL 140 MEQ/L (136-145); URIC ACID 6.3 MG/DL (3.5-7.2)
== END ==
LOC: M WUC 13:28
PROVIDERS: ATTEND Internal Medicine
DX: M1A.9XX0 Chronic gout, unspecified, without tophus (tophi) (principal)

== ENCOUNTER → 2021-10-28 | Outpatient (CLI) | payer OTHER ==
[2021-10-28 19:27] LABS: BLOOD UREA NITROGEN 13 MG/DL (7-18); CALCIUM LEVEL 8.6 MG/DL (8.5-10.1); CARBON DIOXIDE LEVEL 30 MEQ/L (21-32); CHLORIDE LEVEL 108 MEQ/L (98-107); CREATININE FOR GFR 1.19 MG/DL (0.70-1.30); GLOMERULAR FILTRATION RATE > 60.0 (>60); GLUCOSE, FASTING 106 MG/DL (70-100); POTASSIUM SERUM 3.8 MEQ/L (3.5-5.1); SODIUM LEVEL 143 MEQ/L (136-145); URIC ACID 6.1 MG/DL (3.5-7.2)
== END ==
LOC: M WUC 15:42
PROVIDERS: ATTEND Internal Medicine
DX: M1A.9XX0 Chronic gout, unspecified, without tophus (tophi) (principal)

== ENCOUNTER → 2021-11-25 | Outpatient (CLI) | payer OTHER ==
[2021-11-25 10:50] LABS: BLOOD UREA NITROGEN 11 MG/DL (7-18); CALCIUM LEVEL 8.6 MG/DL (8.5-10.1); CARBON DIOXIDE LEVEL 29 MEQ/L (21-32); CHLORIDE LEVEL 108 MEQ/L (98-107); CREATININE FOR GFR 1.15 MG/DL (0.70-1.30); GLOMERULAR FILTRATION RATE > 60.0 (>56); GLUCOSE, FASTING 110 MG/DL (70-100); POTASSIUM SERUM 3.6 MEQ/L (3.5-5.1); SODIUM LEVEL 142 MEQ/L (136-145)
== END ==
LOC: M WUC 08:05
PROVIDERS: ATTEND Internal Medicine
DX: M1A.9XX0 Chronic gout, unspecified, without tophus (tophi) (principal)

== ENCOUNTER → 2021-12-09 | Outpatient (CLI) | payer OTHER | LOC: M WUC 15:42 | PROVIDERS: ATTEND Physician Assistant | DX: L40.9 Psoriasis, unspecified (principal) ==

== ENCOUNTER → 2021-12-09 | Outpatient (CLI) | payer OTHER ==
[2021-12-09 19:51] LABS: CHOLESTEROL LEVEL 196 MG/DL (<200); CHOLESTEROL RISK RATIO 5.939 (<5); HDL CHOLESTEROL 33 MG/DL (>40); NON-HDL-C 163 MG/DL; TRIGLYCERIDES LEVEL 423 MG/DL (<150)
[2021-12-09 20:05] LABS: HEMOGLOBIN A1c 5.7 %
== END ==
LOC: M WUC 15:40
PROVIDERS: ATTEND Student in an Organized Health Care Education/Training Program
DX: R73.01 Impaired fasting glucose (principal); I10 Essential (primary) hypertension

== ENCOUNTER → 2021-12-09 | Outpatient (CLI) | payer OTHER ==
[2021-12-09 19:48] LABS: BLOOD UREA NITROGEN 15 MG/DL (7-18); CALCIUM LEVEL 8.3 MG/DL (8.5-10.1); CARBON DIOXIDE LEVEL 29 MEQ/L (21-32); CHLORIDE LEVEL 107 MEQ/L (98-107); GLOMERULAR FILTRATION RATE > 60.0 (>56); GLUCOSE, FASTING 116 MG/DL (70-100); POTASSIUM SERUM 3.8 MEQ/L (3.5-5.1); SODIUM LEVEL 141 MEQ/L (136-145); URIC ACID 4.8 MG/DL (3.5-7.2)
== END ==
LOC: M WUC 15:45
PROVIDERS: ATTEND Internal Medicine
DX: M1A.9XX0 Chronic gout, unspecified, without tophus (tophi) (principal)

== ENCOUNTER → 2021-12-23 | Outpatient (CLI) | payer OTHER ==
[2021-12-23 19:51] LABS: CREATININE FOR GFR 1.36 MG/DL (0.70-1.30); GLOMERULAR FILTRATION RATE 59.1 (>56); POTASSIUM SERUM 3.9 MEQ/L (3.5-5.1); URIC ACID 4.2 MG/DL (3.5-7.2)
== END ==
LOC: M WUC 15:31
PROVIDERS: ATTEND Internal Medicine
DX: M1A.9XX0 Chronic gout, unspecified, without tophus (tophi) (principal)

== ENCOUNTER → 2022-01-05 | Outpatient (CLI) | payer OTHER ==
[2022-01-05 16:30] LABS: CALCIUM LEVEL 8.9 MG/DL (8.5-10.1); CREATININE FOR GFR 1.41 MG/DL (0.70-1.30); GLOMERULAR FILTRATION RATE 56.6 (>56); POTASSIUM SERUM 4.1 MEQ/L (3.5-5.1); URIC ACID 4.4 MG/DL (3.5-7.2)
== END ==
LOC: M WUC 13:23
PROVIDERS: ATTEND Internal Medicine
DX: M1A.9XX0 Chronic gout, unspecified, without tophus (tophi) (principal)

== ENCOUNTER → 2022-01-28 | Outpatient (CLI) | payer OTHER ==
[2022-01-28 10:00] LABS: CALCIUM LEVEL 9.1 MG/DL (8.5-10.1); CREATININE FOR GFR 1.37 MG/DL (0.70-1.30); GLOMERULAR FILTRATION RATE 58.6 (>56); POTASSIUM SERUM 3.7 MEQ/L (3.5-5.1); URIC ACID 5.2 MG/DL (3.5-7.2)
== END ==
LOC: M WUC 07:59
PROVIDERS: ATTEND Internal Medicine
DX: M1A.9XX0 Chronic gout, unspecified, without tophus (tophi) (principal)

== ENCOUNTER → 2022-02-10 | Outpatient (CLI) | payer OTHER ==
[2022-02-10 12:02] LABS: CREATININE FOR GFR 1.36 MG/DL (0.70-1.30); GLOMERULAR FILTRATION RATE 59.1 (>56); URIC ACID 5.9 MG/DL (3.5-7.2)
== END ==
LOC: M WUC 07:59
PROVIDERS: ATTEND Internal Medicine
DX: M1A.9XX0 Chronic gout, unspecified, without tophus (tophi) (principal)

== ENCOUNTER → 2022-02-22 | Outpatient (CLI) | payer OTHER ==
[2022-02-22 13:28] LABS: BLOOD UREA NITROGEN 13 MG/DL (7-18); CALCIUM LEVEL 8.8 MG/DL (8.5-10.1); CARBON DIOXIDE LEVEL 29 MEQ/L (21-32); CHLORIDE LEVEL 108 MEQ/L (98-107); CREATININE FOR GFR 1.25 MG/DL (0.70-1.30); GLOMERULAR FILTRATION RATE > 60.0 (>56); GLUCOSE, FASTING 90 MG/DL (70-100); POTASSIUM SERUM 3.9 MEQ/L (3.5-5.1); SODIUM LEVEL 141 MEQ/L (136-145); URIC ACID 5.7 MG/DL (3.5-7.2)
== END ==
LOC: M WUC 09:11
PROVIDERS: ATTEND Internal Medicine
DX: M1A.9XX0 Chronic gout, unspecified, without tophus (tophi) (principal)

== ENCOUNTER → 2022-03-02 | Outpatient (CLI) | payer OTHER ==
[2022-03-02 18:09] LABS: BLOOD UREA NITROGEN 19 MG/DL (7-18); CALCIUM LEVEL 9.7 MG/DL (8.5-10.1); CARBON DIOXIDE LEVEL 29 MEQ/L (21-32); CHLORIDE LEVEL 106 MEQ/L (98-107); CREATININE FOR GFR 1.31 MG/DL (0.70-1.30); GLOMERULAR FILTRATION RATE > 60.0 (>56); GLUCOSE, FASTING 90 MG/DL (70-100); POTASSIUM SERUM 3.9 MEQ/L (3.5-5.1); SODIUM LEVEL 143 MEQ/L (136-145); URIC ACID 5.8 MG/DL (3.5-7.2)
== END ==
LOC: M WUC 14:28
PROVIDERS: ATTEND Internal Medicine
DX: M1A.9XX0 Chronic gout, unspecified, without tophus (tophi) (principal)

== ENCOUNTER → 2022-04-15 | Outpatient (CLI) | payer OTHER ==
[2022-04-15 20:58] LABS: BLOOD UREA NITROGEN 15 MG/DL (7-18); CARBON DIOXIDE LEVEL 29 MEQ/L (21-32); CHLORIDE LEVEL 111 MEQ/L (98-107); CREATININE FOR GFR 1.27 MG/DL (0.70-1.30); GLOMERULAR FILTRATION RATE > 60.0 (>56); GLUCOSE, FASTING 108 MG/DL (70-100); POTASSIUM SERUM 4.2 MEQ/L (3.5-5.1); SODIUM LEVEL 141 MEQ/L (136-145); URIC ACID 4.9 MG/DL (3.5-7.2)
== END ==
LOC: M WUC 15:31
PROVIDERS: ATTEND Internal Medicine
DX: M1A.9XX0 Chronic gout, unspecified, without tophus (tophi) (principal)

== ENCOUNTER → 2022-05-11 | Outpatient (REF) | payer OTHER ==
[2022-05-11 16:33] LABS: BLOOD UREA NITROGEN 20 MG/DL (7-18); CALCIUM LEVEL 9.4 MG/DL (8.5-10.1); CARBON DIOXIDE LEVEL 25 MEQ/L (21-32); CHLORIDE LEVEL 109 MEQ/L (98-107); CREATININE FOR GFR 1.32 MG/DL (0.70-1.30); GLOMERULAR FILTRATION RATE > 60.0 (>56); GLUCOSE, FASTING 77 MG/DL (70-100); POTASSIUM SERUM 3.8 MEQ/L (3.5-5.1); SODIUM LEVEL 143 MEQ/L (136-145); URIC ACID 6.1 MG/DL (3.5-7.2)
== END ==
LOC: M WUC 15:31
PROVIDERS: ATTEND Internal Medicine
DX: M1A.9XX0 Chronic gout, unspecified, without tophus (tophi) (principal)

== ENCOUNTER → 2022-06-23 | Outpatient (CLI) | payer OTHER ==
[2022-06-23 21:01] LABS: BLOOD UREA NITROGEN 16 MG/DL (7-18); CALCIUM LEVEL 8.8 MG/DL (8.5-10.1); CARBON DIOXIDE LEVEL 24 MEQ/L (21-32); CHLORIDE LEVEL 110 MEQ/L (98-107); CREATININE FOR GFR 1.22 MG/DL (0.70-1.30); GLOMERULAR FILTRATION RATE > 60.0 (>56); GLUCOSE, FASTING 107 MG/DL (70-100); POTASSIUM SERUM 3.9 MEQ/L (3.5-5.1); SODIUM LEVEL 140 MEQ/L (136-145); URIC ACID 5.4 MG/DL (3.5-7.2)
== END ==
LOC: M WUC 15:10
PROVIDERS: ATTEND Internal Medicine
DX: M1A.9XX0 Chronic gout, unspecified, without tophus (tophi) (principal)

== ENCOUNTER → 2022-07-07 | Outpatient (REF) | payer OTHER ==
[2022-07-07 18:11] LABS: BLOOD UREA NITROGEN 11 MG/DL (7-18); CALCIUM LEVEL 8.6 MG/DL (8.5-10.1); CARBON DIOXIDE LEVEL 22 MEQ/L (21-32); CHLORIDE LEVEL 111 MEQ/L (98-107); CREATININE FOR GFR 1.12 MG/DL (0.70-1.30); GLOMERULAR FILTRATION RATE > 60.0 (>56); GLUCOSE, FASTING 96 MG/DL (70-100); POTASSIUM SERUM 3.5 MEQ/L (3.5-5.1); SODIUM LEVEL 139 MEQ/L (136-145); URIC ACID 7.2 MG/DL (3.5-7.2)
== END ==
LOC: M LABWUC 16:24 → M SFHCRHEU 16:24
PROVIDERS: ATTEND Internal Medicine
DX: M1A.9XX0 Chronic gout, unspecified, without tophus (tophi) (principal)

== ENCOUNTER → 2022-07-27 | Outpatient (REF) | payer OTHER ==
[2022-07-27 17:12] LABS: BLOOD UREA NITROGEN 16 MG/DL (7-18); CALCIUM LEVEL 8.9 MG/DL (8.5-10.1); CARBON DIOXIDE LEVEL 28 MEQ/L (21-32); CHLORIDE LEVEL 110 MEQ/L (98-107); CREATININE FOR GFR 1.32 MG/DL (0.70-1.30); GLOMERULAR FILTRATION RATE > 60.0 (>56); GLUCOSE, FASTING 116 MG/DL (70-100); POTASSIUM SERUM 3.9 MEQ/L (3.5-5.1); SODIUM LEVEL 142 MEQ/L (136-145); URIC ACID 5.1 MG/DL (3.5-7.2)
== END ==
LOC: M LABWUC 16:06
PROVIDERS: ATTEND Internal Medicine
DX: M1A.9XX0 Chronic gout, unspecified, without tophus (tophi) (principal)

== ENCOUNTER → 2022-09-15 | Outpatient (CLI) | payer OTHER ==
[2022-09-15 18:16] LABS: BLOOD UREA NITROGEN 14 MG/DL (7-18); CALCIUM LEVEL 8.9 MG/DL (8.5-10.1); CARBON DIOXIDE LEVEL 27 MEQ/L (21-32); CHLORIDE LEVEL 108 MEQ/L (98-107); CREATININE FOR GFR 1.19 MG/DL (0.70-1.30); GLOMERULAR FILTRATION RATE > 60.0 (>56); GLUCOSE, FASTING 87 MG/DL (70-100); POTASSIUM SERUM 3.7 MEQ/L (3.5-5.1); SODIUM LEVEL 141 MEQ/L (136-145)
== END ==
LOC: M WUC 14:12
PROVIDERS: ATTEND Internal Medicine
DX: M1A.9XX0 Chronic gout, unspecified, without tophus (tophi) (principal)

== ENCOUNTER → 2022-11-17 | Outpatient (CLI) | payer OTHER ==
[2022-11-17 12:56] LABS: URIC ACID 5.5 MG/DL (3.7-9.2)
[2022-11-17 12:58] LABS: BLOOD UREA NITROGEN 16 MG/DL (9-23); CALCIUM LEVEL 9.3 MG/DL (8.5-10.1); CARBON DIOXIDE LEVEL 29 MMOL/L (20-31); CHLORIDE LEVEL 105 MMOL/L (98-107); CREATININE FOR GFR 1.12 MG/DL (0.70-1.30); GLOMERULAR FILTRATION RATE > 60.0 (>56); GLUCOSE, FASTING 132 MG/DL (60-100); POTASSIUM SERUM 4.4 MMOL/L (3.5-5.1); SODIUM LEVEL 141 MMOL/L (136-145)
== END ==
LOC: M WUC 09:09
PROVIDERS: ATTEND Internal Medicine
DX: M1A.9XX0 Chronic gout, unspecified, without tophus (tophi) (principal)

== ENCOUNTER → 2022-12-20 | Outpatient (CLI) | payer OTHER | LOC: M WUC 10:45 | PROVIDERS: ATTEND Physician Assistant | DX: L40.9 Psoriasis, unspecified (principal) ==

== ENCOUNTER → 2022-12-20 | Outpatient (CLI) | payer OTHER ==
[2022-12-20 15:04] LABS: URIC ACID 5.7 MG/DL (3.7-9.2)
[2022-12-20 15:07] LABS: BLOOD UREA NITROGEN 15 MG/DL (9-23); CALCIUM LEVEL 9.1 MG/DL (8.5-10.1); CARBON DIOXIDE LEVEL 27 MMOL/L (20-31); CHLORIDE LEVEL 107 MMOL/L (98-107); GLOMERULAR FILTRATION RATE > 60.0 (>56); GLUCOSE, FASTING 74 MG/DL (60-100); POTASSIUM SERUM 4.3 MMOL/L (3.5-5.1); SODIUM LEVEL 141 MMOL/L (136-145)
== END ==
LOC: M WUC 10:47
PROVIDERS: ATTEND Internal Medicine
DX: M1A.9XX0 Chronic gout, unspecified, without tophus (tophi) (principal)

== ENCOUNTER → 2023-01-03 | Outpatient (CLI) | payer OTHER ==
[~2023-01-03] MED LIST changes: +ALLO100T PO; +BUPR150T12 PO; +CHIL1CHW3 PO; +CHLO25TA PO; +COLC0.6T47 PO; +CYAN500T14 PO; +D400400C PO; +FERR325T81 PO; +LISI20TA33 PO; +NABU-71 PO; +OMEP1CAP73 PO; +PRAV40TA2 PO; +PROZ20CA11 PO
== END ==
LOC: M LABSMTC 09:06
PROVIDERS: ATTEND Anesthesiology
DX: Z01.812 Encounter for preprocedural laboratory examination (principal); Z11.52 Encounter for screening for COVID-19

== ENCOUNTER 2023-01-06 09:37 | Day surgery (SDC) | payer OTHER ==
[~2023-01-06] VITALS: Ht 185.4 cm; Wt 139.9 kg
[~2023-01-06 09:37] MED LIST changes: +LIDOCAINE 2% 100MG/5ML SDV (FOR ANES.) As Ordered ONE; +NS 1,000 ML IV ONE; +propofoL 200 MG/20 ML VIAL As Ordered ONE
[2023-01-06] MEDS ORDERED: fentaNYL 100 MCG/2 ML INJECTION As Ordered ONE (10:54)
[2023-01-06] MEDS ORDERED: propofoL 200 MG/20 ML VIAL As Ordered ONE (11:30)
[2023-01-06 12:04] VITALS: BP 118/69
== END 2023-01-06 12:17 | disposition home or self-care (01) ==
LOC: M OPP 09:37
PROVIDERS: ATTEND Internal Medicine Gastroenterology
DX: Z12.11 Encounter for screening for malignant neoplasm of colon (principal); Z80.0 Family history of malignant neoplasm of digestive organs; D12.3 Benign neoplasm of transverse colon; D12.5 Benign neoplasm of sigmoid colon; K64.8 Other hemorrhoids; K55.20 Angiodysplasia of colon without hemorrhage; K22.89 Other specified disease of esophagus; Z98.0 Intestinal bypass and anastomosis status; I10 Essential (primary) hypertension; F32.9 Major depressive disorder, single episode, unspecified; F41.9 Anxiety disorder, unspecified; M10.9 Gout, unspecified; Z79.02 Long term (current) use of antithrombotics/antiplatelets; Z79.1 Long term (current) use of non-steroidal anti-inflammatories (NSAID); Z79.52 Long term (current) use of systemic steroids; Z79.899 Other long term (current) drug therapy; Z90.49 Acquired absence of other specified parts of digestive tract; Z80.3 Family history of malignant neoplasm of breast; Z80.52 Family history of malignant neoplasm of bladder
CPT/HCPCS: 43239; 45385; 88305; J3010

== ENCOUNTER → 2023-02-02 | Outpatient (CLI) | payer OTHER ==
[~2023-02-02] MED LIST changes: -LIDOCAINE 2% 100MG/5ML SDV (FOR ANES.) As Ordered ONE; -NS 1,000 ML IV ONE; -propofoL 200 MG/20 ML VIAL As Ordered ONE
[2023-02-02 17:20] LABS: URIC ACID 6.1 MG/DL (3.7-9.2)
[2023-02-02 17:23] LABS: BLOOD UREA NITROGEN 14 MG/DL (9-23); CALCIUM LEVEL 9.1 MG/DL (8.5-10.1); CARBON DIOXIDE LEVEL 29 MMOL/L (20-31); CHLORIDE LEVEL 106 MMOL/L (98-107); CREATININE FOR GFR 1.15 MG/DL (0.70-1.30); GLOMERULAR FILTRATION RATE > 60.0 (>56); GLUCOSE, FASTING 121 MG/DL (60-100); POTASSIUM SERUM 3.6 MMOL/L (3.5-5.1); SODIUM LEVEL 142 MMOL/L (136-145)
== END ==
LOC: M WUC 13:32
PROVIDERS: ATTEND Internal Medicine
DX: M1A.9XX0 Chronic gout, unspecified, without tophus (tophi) (principal)

== ENCOUNTER → 2023-02-24 | Outpatient (CLI) | payer OTHER ==
[2023-02-24 15:50] LABS: BLOOD UREA NITROGEN 14 MG/DL (9-23); CARBON DIOXIDE LEVEL 29 MMOL/L (20-31); CHLORIDE LEVEL 106 MMOL/L (98-107); CREATININE FOR GFR 1.13 MG/DL (0.70-1.30); GLOMERULAR FILTRATION RATE > 60.0 (>56); GLUCOSE, FASTING 105 MG/DL (60-100); POTASSIUM SERUM 4.2 MMOL/L (3.5-5.1); SODIUM LEVEL 142 MMOL/L (136-145); URIC ACID 4.1 MG/DL (3.7-9.2)
== END ==
LOC: M WUC 09:03
PROVIDERS: ATTEND Internal Medicine
DX: M1A.9XX0 Chronic gout, unspecified, without tophus (tophi) (principal)

== ENCOUNTER → 2023-04-01 | Outpatient (CLI) | payer OTHER ==
[2023-04-01 18:22] LABS: URIC ACID 5.8 MG/DL (3.7-9.2)
[2023-04-01 18:25] LABS: BLOOD UREA NITROGEN 15 MG/DL (9-23); CALCIUM LEVEL 8.2 MG/DL (8.5-10.1); CARBON DIOXIDE LEVEL 28 MMOL/L (20-31); CHLORIDE LEVEL 109 MMOL/L (98-107); CREATININE FOR GFR 1.17 MG/DL (0.70-1.30); GLOMERULAR FILTRATION RATE > 60.0 (>56); GLUCOSE, FASTING 102 MG/DL (60-100); POTASSIUM SERUM 4.2 MMOL/L (3.5-5.1); SODIUM LEVEL 143 MMOL/L (136-145)
== END ==
LOC: M WUC 13:52
PROVIDERS: ATTEND Internal Medicine
DX: M1A.9XX0 Chronic gout, unspecified, without tophus (tophi) (principal)

== ENCOUNTER → 2023-05-03 | Outpatient (CLI) | payer OTHER ==
[2023-05-03 10:40] LABS: BLOOD UREA NITROGEN 18 MG/DL (9-23); CALCIUM LEVEL 8.9 MG/DL (8.5-10.1); CARBON DIOXIDE LEVEL 30 MMOL/L (20-31); CHLORIDE LEVEL 107 MMOL/L (98-107); CREATININE FOR GFR 1.16 MG/DL (0.70-1.30); GLOMERULAR FILTRATION RATE > 60.0 (>56); GLUCOSE, FASTING 74 MG/DL (60-100); POTASSIUM SERUM 4.6 MMOL/L (3.5-5.1); SODIUM LEVEL 143 MMOL/L (136-145)
== END ==
LOC: M WUC 08:21
PROVIDERS: ATTEND Internal Medicine
DX: M1A.9XX0 Chronic gout, unspecified, without tophus (tophi) (principal)

== ENCOUNTER → 2023-07-13 | Outpatient (REF) | payer OTHER ==
[2023-07-13 17:44] LABS: URIC ACID 4.7 MG/DL (3.7-9.2)
[2023-07-13 17:45] LABS: BLOOD UREA NITROGEN 18 MG/DL (9-23); CALCIUM LEVEL 9.3 MG/DL (8.5-10.1); CARBON DIOXIDE LEVEL 28 MMOL/L (20-31); CHLORIDE LEVEL 106 MMOL/L (98-107); GLOMERULAR FILTRATION RATE > 60.0 (>56); GLUCOSE, FASTING 94 MG/DL (60-100); POTASSIUM SERUM 4.3 MMOL/L (3.5-5.1); SODIUM LEVEL 143 MMOL/L (136-145)
== END ==
LOC: M LABDRWAD 16:32
PROVIDERS: ATTEND Internal Medicine
DX: M1A.9XX0 Chronic gout, unspecified, without tophus (tophi) (principal)

== ENCOUNTER → 2023-10-19 | Outpatient (CLI) | payer OTHER ==
[2023-10-19 16:51] LABS: HEMOGLOBIN A1c 5.3 % (4.0-6.0)
[2023-10-19 17:05] LABS: ALBUMIN 3.5 G/DL (3.2-5.2); ALKALINE PHOSPHATASE 37 U/L (46-116); ALT/SGPT 20 U/L (7.0-40); AST/SGOT 16 U/L (<34); BILIRUBIN,TOTAL 0.3 MG/DL (0.3-1.2); BLOOD UREA NITROGEN 13 MG/DL (9-23); CALCIUM LEVEL 8.6 MG/DL (8.5-10.1); CARBON DIOXIDE LEVEL 27 MMOL/L (20-31); CHLORIDE LEVEL 107 MMOL/L (98-107); CHOLESTEROL LEVEL 140 MG/DL (<200); CHOLESTEROL RISK RATIO 4.53 (<5); CREATININE FOR GFR 0.94 MG/DL (0.70-1.30); GLOMERULAR FILTRATION RATE > 60.0 (>56); GLUCOSE, FASTING 79 MG/DL (60-100); HDL CHOLESTEROL 30.9 MG/DL (>40); LDL CHOLESTEROL 74.7 MG/DL (<100); NON-HDL-C 109.1 MG/DL; POTASSIUM SERUM 4.2 MMOL/L (3.5-5.1); SODIUM LEVEL 141 MMOL/L (136-145); TOTAL PROTEIN 6.3 G/DL (5.7-8.2); TRIGLYCERIDES LEVEL 172 MG/DL (<150)
[2023-10-19 17:07] LABS: HEPATITIS B SURFACE ANTIBODY NEGATIVE (POSITIVE)
[2023-10-19 17:33] LABS: HIV 1&2 SCREEN NEGATIVE (NEGATIVE)
[2023-10-19 17:40] LABS: HEPATITIS C VIRUS ABY INDEX 0.03 INDEX (<0.8)
== END ==
LOC: M WUC 14:47
PROVIDERS: ATTEND Family Medicine
DX: Z11.4 Encounter for screening for human immunodeficiency virus [HIV] (principal); E78.2 Mixed hyperlipidemia

== ENCOUNTER → 2023-12-15 | Outpatient (CLI) | payer OTHER | LOC: M WUC 10:44 | PROVIDERS: ATTEND Physician Assistant | DX: L40.9 Psoriasis, unspecified (principal) ==

== ENCOUNTER → 2024-02-08 | Outpatient (CLI) | payer OTHER ==
[2024-02-08 11:14] LABS: URIC ACID 5.8 MG/DL (3.7-9.2)
[2024-02-08 11:16] LABS: BLOOD UREA NITROGEN 16 MG/DL (9-23); CARBON DIOXIDE LEVEL 32 MMOL/L (20-31); CHLORIDE LEVEL 107 MMOL/L (98-107); CREATININE FOR GFR 1.15 MG/DL (0.70-1.30); GLOMERULAR FILTRATION RATE > 60.0 (>56); GLUCOSE, FASTING 91 MG/DL (60-100); SODIUM LEVEL 143 MMOL/L (136-145)
== END ==
LOC: M WUC 08:13
PROVIDERS: ATTEND Internal Medicine
DX: M1A.9XX0 Chronic gout, unspecified, without tophus (tophi) (principal)

== ENCOUNTER → 2024-02-08 | Outpatient (CLI) | payer OTHER | LOC: M WUC 08:11 | PROVIDERS: ATTEND Family Medicine | DX: Z11.4 Encounter for screening for human immunodeficiency virus [HIV] (principal) ==

== ENCOUNTER → 2024-07-24 | Outpatient (CLI) | payer OTHER ==
[2024-07-25 18:36] LABS: Trichomonas vaginalis (AMP) NOT DETECTED (NEGATIVE)
[2024-07-25 19:00] LABS: GC DNA AMPLIFICATION NEGATIVE (NEGATIVE)
[2024-07-28 16:38] LABS: HIV 1&2 SCREEN NEGATIVE (NEGATIVE)
== END ==
LOC: M WUC 12:47
PROVIDERS: ATTEND Family Medicine
DX: Z11.3 Encounter for screening for infections with a predominantly sexual mode of transmission (principal)

== ENCOUNTER → 2024-11-30 | Outpatient (REF) | payer OTHER ==
[2024-11-30 18:34] LABS: BLOOD UREA NITROGEN 20 MG/DL (9-23); CALCIUM LEVEL 9.2 MG/DL (8.5-10.1); CARBON DIOXIDE LEVEL 27 MMOL/L (20-31); CHLORIDE LEVEL 111 MMOL/L (98-107); CREATININE FOR GFR 1.26 MG/DL (0.70-1.30); GLOMERULAR FILTRATION RATE > 60.0 (>56); GLUCOSE, FASTING 75 MG/DL (60-100); POTASSIUM SERUM 4.1 MMOL/L (3.5-5.1); SODIUM LEVEL 145 MMOL/L (136-145)
[2024-11-30 18:36] LABS: URIC ACID 9.5 MG/DL (3.7-9.2)
== END ==
LOC: M LABWUC 16:19 → M LAB REF 16:19
PROVIDERS: ATTEND Internal Medicine
DX: M1A.9XX0 Chronic gout, unspecified, without tophus (tophi) (principal)

== ENCOUNTER → 2024-12-03 | Outpatient (CLI) | payer OTHER | LOC: M LAB 07:54 | PROVIDERS: ATTEND Physician Assistant | DX: L40.9 Psoriasis, unspecified (principal) ==

== ENCOUNTER 2024-12-31 05:06 | Emergency (ER) | payer OTHER ==
[~2024-12-31] VITALS: Ht 185.4 cm; Wt 131.6 kg
[2024-12-31] MEDS: ONDANSETRON 4MG 2ML VIAL IV ONE (06:54)
[2024-12-31] MEDS: KETOROLAC 30 MG/ML 1ML VIAL IV ONE (06:54)
[2024-12-31 07:01] LABS: BASO % 0.4 % (0.0-1.0); EOS # 0.2 10^3/uL (0.0-0.5); EOS % 2.2 % (0.0-3.0); HEMATOCRIT 49.1 % (42.0-52.0); HEMOGLOBIN 16.6 g/dl (13.5-17.5); LYMPH % 19.4 % (24.0-44.0); MEAN CORPUSCULAR HEMOGLOBIN 30.2 pg (27.0-33.0); MEAN CORPUSCULAR HGB CONC 33.8 g/dl (32.0-36.5); MEAN CORPUSCULAR VOLUME 89.4 fl (80.0-96.0); MONO # 0.7 10^3/uL (0.0-0.8); MONO % 6.7 % (2.0-8.0); NEUTROPHILS # 7.2 10^3/uL (1.5-8.5); NEUTROPHILS % 70.8 % (36.0-66.0); PLATELET COUNT, AUTOMATED 223 10^3/uL (150-450); RED BLOOD COUNT 5.49 10^6/uL (4.30-6.10); WHITE BLOOD COUNT 10.1 10^3/uL (4.0-10.0)
[2024-12-31 07:24] LABS: ALBUMIN 3.6 G/DL (3.2-5.2); BILIRUBIN,DIRECT 0.1 MG/DL (<0.4); BILIRUBIN,TOTAL 0.4 MG/DL (0.3-1.2); CREATININE FOR GFR 1.35 MG/DL (0.70-1.30); GLOMERULAR FILTRATION RATE 58.9 (>56); POTASSIUM SERUM 4.1 MMOL/L (3.5-5.1); TOTAL PROTEIN 6.5 G/DL (5.7-8.2)
[2024-12-31] MEDS: NS 500 ML IV ONE (08:06)
[2024-12-31] MEDS ORDERED: ONDA-282 PO (08:10)
[2024-12-31] MEDS ORDERED: FLOM0.4C39 PO (08:10)
[2024-12-31] MEDS ORDERED: HYDR-3713 PO (08:10)
[2024-12-31] MEDS: ACETAMINOPHEN *IV* 1,000 MG in IV 1 EA IV ONE (08:30)
[2024-12-31 09:36] LABS: KETONE, URINE AUTO RFX NEGATIVE (NEGATIVE); LEUKOCYTE ESTERASE UR AUTO RFX TRACE (NEGATIVE); MUCUS, URINE RFX SMALL (NEGATIVE); NITRITE, URINE AUTO RFX NEGATIVE (NEGATIVE); RBC, URINE AUTO RFX 1 /HPF (0-3); SQUAM EPITHELIAL CELL UR AURFX 0 /HPF (0-6); WBC, URINE AUTO RFX 2 /HPF (0-3)
[2024-12-31 10:15] VITALS: BP 153/94; TEMP 97.8; O2SAT 94
== END 2024-12-31 10:32 | disposition home or self-care (01) ==
LOC: M ED 05:06
DX: N20.1 Calculus of ureter (principal); N28.1 Cyst of kidney, acquired; I49.8 Other specified cardiac arrhythmias; I70.8 Atherosclerosis of other arteries; F41.9 Anxiety disorder, unspecified; F32.A Depression, unspecified; I10 Essential (primary) hypertension; K44.9 Diaphragmatic hernia without obstruction or gangrene; Z98.84 Bariatric surgery status; Z88.0 Allergy status to penicillin; Z79.83 Long term (current) use of bisphosphonates; Z79.899 Other long term (current) drug therapy; Z90.49 Acquired absence of other specified parts of digestive tract; Z79.1 Long term (current) use of non-steroidal anti-inflammatories (NSAID)
CPT/HCPCS: 74176; 80048; 80076; 81001; 83605; 83690; 85025; 87086; 87486; 87507; 87581; 87633; 87798; 93005; 93041; 96361; 96374; 96375; 99285; J0131; J1885; J2405

== ENCOUNTER → 2025-02-06 | Outpatient (REF) | payer OTHER ==
[~2025-02-06] MED LIST changes: +FLOM0.4C39 PO; +HYDR-3713 PO; +ONDA-282 PO
== END ==
LOC: M LABWUC 17:46
PROVIDERS: ATTEND Family Medicine
DX: Z29.81 Encounter for HIV pre-exposure prophylaxis (principal)

== ENCOUNTER → 2025-02-22 | Outpatient (REF) | payer OTHER ==
[2025-02-22 18:17] LABS: URIC ACID 6.1 MG/DL (3.7-9.2)
[2025-02-22 18:25] LABS: BLOOD UREA NITROGEN 15 MG/DL (9-23); CALCIUM LEVEL 8.8 MG/DL (8.5-10.1); CARBON DIOXIDE LEVEL 27 MMOL/L (20-31); CHLORIDE LEVEL 106 MMOL/L (98-107); CREATININE FOR GFR 1.24 MG/DL (0.70-1.30); GLOMERULAR FILTRATION RATE > 60.0 (>56); GLUCOSE, FASTING 106 MG/DL (60-100); POTASSIUM SERUM 3.6 MMOL/L (3.5-5.1); SODIUM LEVEL 142 MMOL/L (136-145); TOTAL 25(OH) VITAMIN D 27.7 NG/ML (20.0-100.0)
== END ==
LOC: M LABWUC 17:13
PROVIDERS: ATTEND Internal Medicine
DX: L40.9 Psoriasis, unspecified (principal); M1A.9XX0 Chronic gout, unspecified, without tophus (tophi)

== ENCOUNTER → 2025-08-23 | Outpatient (CLI) | payer OTHER ==
[~2025-08-23] MED LIST changes: -COLC0.6T47 PO; +COLC0.6T53 PO; -FLOM0.4C39 PO; -PRAV40TA2 PO; +PRAV40TA85 PO; -PROZ20CA11 PO; +PROZ20CA12 PO; +TAMS-18 PO
[2025-08-23 14:35] LABS: CALCIUM LEVEL 9.2 MG/DL (8.5-10.1); CARBON DIOXIDE LEVEL 30.0 MMOL/L (20-31); CHLORIDE LEVEL 103.0 MMOL/L (98-107); CREATININE FOR GFR 1.22 MG/DL (0.70-1.30); GLOMERULAR FILTRATION RATE 70.9 (>56); POTASSIUM SERUM 3.8 MMOL/L (3.5-5.1); SODIUM LEVEL 142.0 MMOL/L (136-145)
== END ==
LOC: M WUC 08:36
PROVIDERS: ATTEND Internal Medicine
DX: M1A.9XX0 Chronic gout, unspecified, without tophus (tophi) (principal)

== ENCOUNTER → 2025-09-30 | Outpatient (CLI) | payer OTHER ==
[2025-09-30 13:12] LABS: BASO # 0.1 10^3/uL (0.0-0.2); BASO % 0.6 % (0.0-1.0); EOS # 0.2 10^3/uL (0.0-0.5); EOS % 2.3 % (0.0-3.0); LYMPH # 2.4 10^3/uL (1.5-5.0); LYMPH % 31.3 % (24.0-44.0); MONO # 0.6 10^3/uL (0.0-0.8); MONO % 7.9 % (2.0-8.0); NEUTROPHILS # 4.5 10^3/uL (1.5-8.5); NEUTROPHILS % 57.6 % (36.0-66.0); PLATELET COUNT, AUTOMATED 256 10^3/uL (150-450)
[2025-09-30 13:34] LABS: ESTIMATED AVERAGE GLUCOSE 128.0 MG/DL (60-110)
[2025-09-30 13:42] LABS: ALT/SGPT 30.0 U/L (7.0-40); AST/SGOT 27.0 U/L (<34); CALCIUM LEVEL 9.0 MG/DL (8.5-10.1); CARBON DIOXIDE LEVEL 29.0 MMOL/L (20-31); CHLORIDE LEVEL 106.0 MMOL/L (98-107); CREATININE FOR GFR 1.24 MG/DL (0.70-1.30); FREE T4 1.02 NG/DL (0.89-1.76); GLOMERULAR FILTRATION RATE 69.5 (>56); IRON (FE) 149.0 UG/DL (65-175); PERCENT SATURATION 44.9 % (19.7-50.0); POTASSIUM SERUM 3.7 MMOL/L (3.5-5.1); SODIUM LEVEL 141.0 MMOL/L (136-145)
[2025-09-30 13:43] LABS: TOTAL 25(OH) VITAMIN D 53.2 NG/ML (20.0-100.0); VITAMIN B12 LEVEL 546.0 PG/ML (211-911)
== END ==
LOC: M WUC 09:07
PROVIDERS: ATTEND Family Medicine
DX: R53.83 Other fatigue (principal); R73.01 Impaired fasting glucose; Z98.84 Bariatric surgery status

== ENCOUNTER → 2025-11-01 | Outpatient (CLI) | payer OTHER ==
[~2025-11-01] MED LIST changes: -PROZ20CA12 PO; +PROZ20CA25 PO
== END ==
LOC: M SLEEP HO 11:08
PROVIDERS: ATTEND Family Medicine
DX: G47.33 Obstructive sleep apnea (adult) (pediatric) (principal)